=== PATIENT | female | born 1955 | race Caucasian/White ===

== ENCOUNTER → 2016-11-06 | Outpatient (CLI) | payer BC ==
[~2016-11-06] MED LIST: ADVIL200 MG PO; ALEVE LIQCAPS PO; AMBIEN 5MG TABLE5 MG PO; AMITRIPTYLINE H25 M1 PO; BENADRYL25 M1 PO; BENADRYL50 MG PO; CALAN120 MG PO; CALCIUM CARBONA1 TA8 PO; CALCIUM CITRAT200 M2 PO; CELEXA PO; CELEXA40 MG PO; COMPAZINE 110 MG/TAB PO; CULTURELLE IMM1 EACH PO; DUO-KAPS1 CAP PO; FIORINAL 325 MG1 CAP PO; FLAX OIL1000 MG PO; FLONASE NASAL S16 GM NS; FLONASEALLERGY NS; LEXAPRO 10MG10 MG PO; MAG-OX 400400 MG/TAB PO; MELATONIN5 M1 PO; MELATONIN5 M1 SL; MIDRIN 325 MG-11 CAP PO; MULTI VITAMINS1 TAB PO; NATURAL MAGNES200 MG PO; NEURONTIN600 MG/TAB PO; NEW ENERGY1 CAP PO; NORCO 325 MG-51 TAB PO; OMEGA 31000 MG PO; PRINIVIL10 MG PO; PROBIOTIC FORMU1 CAP PO; TOPAMAX50 MG PO; TORADOL 10MG TA10 MG PO; TURMERIC1 POW PO; TUSS PO; TYLENOL 325MG325 MG PO; TYLENOL W/COD1 UDTAB PO; ULTRAM 50MG TAB50 MG PO; VERELAN120 MG PO; VITAMIN C BUFF500 MG PO; XANAX 0.5MG0.5 MG PO; ZANAFLEX2 MG PO; ZESTRIL 10MG10 MG PO
== END ==
LOC: MC.RAD 08:40
DX: Z12.31 Encounter for screening mammogram for malignant neoplasm of breast (principal); Z91.89 Other specified personal risk factors, not elsewhere classified

== ENCOUNTER 2017-03-16 09:03 | Emergency (ER) | payer BC ==
[~2017-03-16] VITALS: Ht 160 cm; Wt 81.8 kg
[~2017-03-16 09:03] MED LIST changes: -AMITRIPTYLINE H25 M1 PO; -BENADRYL50 MG PO; -CALCIUM CITRAT200 M2 PO; -COMPAZINE 110 MG/TAB PO; -CULTURELLE IMM1 EACH PO; -FLAX OIL1000 MG PO; -FLONASEALLERGY NS; -NATURAL MAGNES200 MG PO; -NEURONTIN600 MG/TAB PO; -TORADOL 10MG TA10 MG PO; -TYLENOL 325MG325 MG PO; -TYLENOL W/COD1 UDTAB PO; -VERELAN120 MG PO; -ZANAFLEX2 MG PO; -ZESTRIL 10MG10 MG PO
[2017-03-16 09:06] VITALS: TEMP 97.9
[2017-03-16] MEDS ORDERED: CALCIUM CITRAT200 M2 PO (09:47)
[2017-03-16] MEDS ORDERED: FLAX OIL1000 MG PO (09:47)
[2017-03-16] MEDS ORDERED: NEURONTIN600 MG/TAB PO (09:48)
[2017-03-16] MEDS ORDERED: ZESTRIL 10MG10 MG PO (09:48)
[2017-03-16] MEDS ORDERED: CULTURELLE IMM1 EACH PO (09:49)
[2017-03-16] MEDS ORDERED: VERELAN120 MG PO (09:49)
[2017-03-16] MEDS ORDERED: FLONASEALLERGY NS (09:49)
[2017-03-16] MEDS ORDERED: NATURAL MAGNES200 MG PO (09:50)
[2017-03-16] MEDS ORDERED: AMITRIPTYLINE H25 M1 PO (09:51)
[2017-03-16] MEDS ORDERED: ZANAFLEX2 MG PO (09:52)
[2017-03-16] MEDS ORDERED: XANAX 0.5MG0.5 MG PO (10:04)
[2017-03-16] MEDS ORDERED: TORADOL 10MG TA10 MG PO ×2 (10:05→10:09)
[2017-03-16] MEDS ORDERED: TYLENOL 325MG325 MG PO (10:05)
[2017-03-16] MEDS ORDERED: COMPAZINE 110 MG/TAB PO (10:05)
[2017-03-16] MEDS ORDERED: FIORINAL 325 MG1 CAP PO (10:06)
[2017-03-16] MEDS ORDERED: TYLENOL W/COD1 UDTAB PO (10:06)
[2017-03-16] MEDS ORDERED: BENADRYL50 MG PO (10:10)
[2017-03-16 10:18] LABS: HEMOGLOBIN 14.7 g/dl (12.5-16.0); MEAN CELL VOLUME 92 fl (80.0-100.0); MEAN CORPUSCULAR HEMOGLOBIN 31 pg (27.0-31.0); MEAN CORPUSCULAR HGB CONC 33 g/dl (33.0-37.0); MEAN PLATELET VOLUME 9.9 fl (7.4-10.4); PLATELET COUNT 326 K/mm3 (130-400); WHITE BLOOD COUNT 6.4 K/mm3 (4.8-10.8)
[2017-03-16 10:19] LABS: ADD PATHOLOGY DIFF REVIEW NO
[2017-03-16 10:28] LABS: PH 7 (5-8); SQUAMOUS EPITHELIAL None Seen /hpf; URINE APPEARANCE Clear; URINE BACTERIA None Seen /hpf; URINE BILIRUBIN Negative (NEGATIVE); URINE BLOOD Negative (NEGATIVE); URINE COLOR Straw; URINE GLUCOSE Negative (NEGATIVE); URINE KETONE Trace (NEGATIVE); URINE RBC 0-2 /hpf; URINE UROBILINOGEN Negative (NEGATIVE); URINE WBC 0-2 /hpf
[2017-03-16 10:32] LABS: ADJUSTED CALCIUM 9.8 mg/dL (8.4-10.2); ALANINE AMINOTRANSFERASE 28 U/L (9-52); ALBUMIN 4.3 gm/dL (3.5-5.0); ALKALINE PHOSPHATASE 53 U/L (50-136); ANION GAP 10 mmol/L (7-16); BILIRUBIN,TOTAL 0.7 mg/dL (0.0-1.0); BLOOD UREA NITROGEN 17 mg/dL (7-17); CARBON DIOXIDE 26 mmol/L (22-30); CHLORIDE 104 mmol/L (98-107); CREATININE, serum 0.67 mg/dL (0.52-1.25); GLUCOSE 90 mg/dL (74-106); POTASSIUM 3.9 mmol/L (3.4-5.0); SODIUM 140 mmol/L (137-145); TOTAL PROTEIN 7.6 gm/dL (6.4-8.2)
[2017-03-16 10:33] LABS: C-REACTIVE PROTEIN < 0.5 mg/dL (0.0-0.9)
[2017-03-16 10:35] LABS: INR 0.9 (0.8-3.0); PROTHROMBIN TIME 10.4 SECONDS (9.7-12.8)
[2017-03-16 10:43] LABS: BAND 4 % (0-10); BASOPHIL 1 % (0-2); EOSINOPHIL 1 % (0-4); NEUTROPHILS 63 % (42.0-75.2); PLATELET ESTIMATE NORMAL (NORMAL); TOTAL CELLS COUNTED 100
[2017-03-16 11:01] VITALS: BP 142/77; PULSE 61
== END 2017-03-16 11:01 | disposition home or self-care (01) ==
LOC: COL.ER 09:03
PROVIDERS: Family Medicine
DX: G43.909 Migraine, unspecified, not intractable, without status migrainosus (principal); I10 Essential (primary) hypertension; Z79.82 Long term (current) use of aspirin
CPT/HCPCS: J1885; J2550

== ENCOUNTER 2017-03-23 11:10 | Inpatient (IN) | payer BC ==
[~2017-03-23] VITALS: Ht 160 cm; Wt 79.2 kg
[~2017-03-23 11:10] MED LIST changes: +AMITRIPTYLINE H25 M1 PO; +BENADRYL50 MG PO; +CALCIUM CITRAT200 M2 PO; +COMPAZINE 110 MG/TAB PO; +CULTURELLE IMM1 EACH PO; +FLAX OIL1000 MG PO; +FLONASEALLERGY NS; +NATURAL MAGNES200 MG PO; +NEURONTIN600 MG/TAB PO; +TORADOL 10MG TA10 MG PO; +TYLENOL 325MG325 MG PO; +TYLENOL W/COD1 UDTAB PO; +VERELAN120 MG PO; +ZANAFLEX2 MG PO; +ZESTRIL 10MG10 MG PO
[2017-04-22] MEDS ORDERED: IMITREX50 MG PO (16:43)
[2017-04-26] VITALS (10 sets, daily range): BP systolic 106–148; BP diastolic 60–79; PULSE 59–94; TEMP 98–98.9
[2017-04-27] VITALS (8 sets, daily range): BP systolic 104–140; BP diastolic 49–67; PULSE 64–77; TEMP 98–99.1
[2017-04-27 07:14] LABS: HEMATOCRIT 37.6 % (37.0-47.0); HEMOGLOBIN 12.2 g/dl (12.5-16.0)
[2017-04-28 04:18] VITALS: BP 132/60; PULSE 73; TEMP 98.6
[2017-04-28] MEDS ORDERED: ASPI325T6 PO (06:34)
[2017-04-28] MEDS ORDERED: NORCO 325 MG-7.1 TAB PO (06:35)
[2017-04-28] MEDS ORDERED: ROXICODONE 55 MG/TAB PO (06:36)
[2017-04-28] MEDS ORDERED: COLACE 100100 MG/CAP PO (06:37)
[2017-04-28 06:48] LABS: HEMATOCRIT 35.1 % (37.0-47.0); HEMOGLOBIN 11.5 g/dl (12.5-16.0)
[2017-04-28 07:25] VITALS: BP 101/46; PULSE 73; TEMP 98.4
[2017-04-28 11:23] VITALS: BP 137/68; PULSE 75; TEMP 98.2
[2017-04-28 15:42] VITALS: BP 143/56; PULSE 72; TEMP 98.2
== END 2017-04-28 16:49 | disposition home or self-care (01) | DRG 470 ==
LOC: JCC 04-26 08:29
PROVIDERS: Orthopaedic Surgery
PROC: 0SRD0J9 Replacement of Left Knee Joint with Synthetic Substitute, Cemented, Open Approach (ICD-10-PCS; principal; 2017-04-26 13:30)
DX: M17.12 Unilateral primary osteoarthritis, left knee (principal)
CPT/HCPCS: A4315; A9284; C1713; C1776; J0690; J1100; J1885; J2250; J2405; J2704; J7120

== ENCOUNTER → 2017-12-06 | Outpatient (CLI) | payer BC ==
[~2017-12-06] MED LIST changes: +ASPI325T6 PO; +COLACE 100100 MG/CAP PO; +IMITREX50 MG PO; +NORCO 325 MG-7.1 TAB PO; +ROXICODONE 55 MG/TAB PO
== END ==
LOC: MC.RAD 09:40
DX: Z12.31 Encounter for screening mammogram for malignant neoplasm of breast (principal)

== ENCOUNTER 2019-09-18 08:17 | Day surgery (SDC) | payer MEDICARE, OTHER ==
[~2019-09-18] VITALS: Ht 160 cm; Wt 77.3 kg
[2019-09-18] MEDS ORDERED: D3-5050000 IU PO (08:31)
[2019-09-18] MEDS ORDERED: PRAVACHOL 40MG40 MG PO (08:33)
[2019-09-18] MEDS ORDERED: ZANTAC 150150 MG PO (08:34)
[2019-09-18] MEDS ORDERED: PRIL40 PO (08:34)
[2019-09-18] MEDS ORDERED: EMGALITY120 MG/1 M SQ (08:34)
[2019-09-18] MEDS ORDERED: CELEXA 20MG20 MG/TAB PO (08:35)
[2019-09-18] MEDS ORDERED: TYLENOL W/COD1 UDTAB PO (08:36)
[2019-09-18] MEDS ORDERED: IMITREX50 MG PO (08:36)
[2019-09-18] MEDS ORDERED: TORADOL 10MG TA10 MG PO (08:37)
[2019-09-18] MEDS ORDERED: COMPAZINE 110 MG/TAB PO (08:37)
[2019-09-18 08:43] VITALS: BP 134/63; PULSE 57; TEMP 98
[2019-09-18 10:12] VITALS: BP 111/71; PULSE 58; TEMP 98.5
--- NOTE | 2019-09-18 10:12 | NUR ---
Pt returned from procedure via cart, accompanied by XENIA Dodson. Pt ambulates to chair with SBA X1 without difficulties, A&O x4, denies pain/discomfort, or N/V, VSS and WNL, Lungs CTAB with no shortness of breath noted. Diet pepsi offered per pt request, call light within reach and Son at bedside.
[2019-09-18 10:30] VITALS: BP 115/69; PULSE 60; TEMP 97.8
[2019-09-18 10:45] VITALS: BP 115/79; PULSE 61; TEMP 97.4
--- NOTE | 2019-09-18 10:50 | NUR ---
Pt has drank 100% of diet Pepsi and has ate 100% of blueberry muffin without difficulties. Continues to deny N/V, or pain/discomfort, VSS and WNL, son remains at bedside, no further concerns at this time.
[2019-09-18 11:00] VITALS: BP 114/74; PULSE 66; TEMP 97.4
--- NOTE | 2019-09-18 11:09 | NUR ---
Dr. Roche into see and review findings with pt and Son.
--- NOTE | 2019-09-18 11:32 | NUR ---
Pt discharge instructions and education reviewed with pt and son, verbalized understanding, IV removed per orders without difficulties, pt dressed by self without difficulites and escorted out to son's car via W/C by this nurse.
== END 2019-09-18 11:32 | disposition home or self-care (01) ==
LOC: SDCO 08:17
DX: D12.2 Benign neoplasm of ascending colon (principal); D12.5 Benign neoplasm of sigmoid colon; D12.8 Benign neoplasm of rectum; K64.4 Residual hemorrhoidal skin tags; K52.9 Noninfective gastroenteritis and colitis, unspecified; D13.0 Benign neoplasm of esophagus; K21.9 Gastro-esophageal reflux disease without esophagitis; K44.9 Diaphragmatic hernia without obstruction or gangrene; K29.30 Chronic superficial gastritis without bleeding; I10 Essential (primary) hypertension; F32.9 Major depressive disorder, single episode, unspecified; F41.9 Anxiety disorder, unspecified; G43.909 Migraine, unspecified, not intractable, without status migrainosus; Z86.010 Personal history of colon polyps; Z88.1 Allergy status to other antibiotic agents; Z79.51 Long term (current) use of inhaled steroids; Z83.71 Family history of colonic polyps; Z90.49 Acquired absence of other specified parts of digestive tract; Z90.710 Acquired absence of both cervix and uterus
CPT/HCPCS: J2250; J2405; J3010; J7030

== ENCOUNTER → 2019-09-28 | Outpatient (CLI) | payer MEDICARE, OTHER ==
[~2019-09-28] MED LIST changes: +CELEXA 20MG20 MG/TAB PO; +D3-5050000 IU PO; +EMGALITY120 MG/1 M SQ; +PRAVACHOL 40MG40 MG PO; +PRIL40 PO; +ZANTAC 150150 MG PO
== END ==
LOC: MC.RAD 09:56
DX: Z12.31 Encounter for screening mammogram for malignant neoplasm of breast (principal)

== ENCOUNTER → 2020-10-16 | Outpatient (CLI) | payer MEDICARE, OTHER | LOC: MC.RAD 13:07 | DX: Z12.31 Encounter for screening mammogram for malignant neoplasm of breast (principal) ==

== ENCOUNTER → 2020-12-21 | Outpatient (CLI) | payer MEDICARE, OTHER | LOC: COL.RAD 10:22 | DX: G31.9 Degenerative disease of nervous system, unspecified (principal); I67.89 Other cerebrovascular disease; M47.812 Spondylosis without myelopathy or radiculopathy, cervical region; G43.709 Chronic migraine without aura, not intractable, without status migrainosus | CPT/HCPCS: A9585 ==

== ENCOUNTER → 2021-11-20 | Outpatient (CLI) | payer MEDICARE, OTHER | LOC: MC.RAD 13:04 | DX: Z12.31 Encounter for screening mammogram for malignant neoplasm of breast (principal) ==

== ENCOUNTER → 2023-01-01 | Outpatient (CLI) | payer MEDICARE, OTHER | LOC: MC.RAD 12:49 | DX: Z12.31 Encounter for screening mammogram for malignant neoplasm of breast (principal) ==

== ENCOUNTER 2023-08-26 10:49 | Emergency (ER) | payer MEDICARE, OTHER ==
[~2023-08-26] VITALS: Ht 160 cm; Wt 71.8 kg
[2023-08-26 10:55] VITALS: TEMP 98.2
[2023-08-26 11:41] LABS: BASO # 0.1 K/mm3 (0.0-0.2); BASO % 1.4 % (0.0-2.0); EOS # 0.1 K/mm3 (0.0-0.7); EOS % 2.2 % (0.0-4.0); GRAN # 1.6 K/mm3 (1.4-6.5); GRAN % 43.7 % (42.2-75.2); HEMATOCRIT 39.2 % (37.0-47.0); HEMOGLOBIN 12.6 g/dl (12.5-16.0); LYMPH # 1.4 K/mm3 (1.2-3.4); LYMPH % 38.9 % (20.0-51.0); MEAN CELL VOLUME 96 fl (80.0-100.0); MEAN CORPUSCULAR HEMOGLOBIN 31 pg (27-31); MEAN CORPUSCULAR HGB CONC 32 g/dl (33.0-37.0); MONO # 0.5 K/mm3 (0.1-0.6); MONO % 13.8 % (1.7-9.3); PLATELET COUNT 295 K/mm3 (130-400); RED BLOOD COUNT 4.09 M/mm3 (4.10-5.30)
[2023-08-26 12:09] LABS: ALANINE AMINOTRANSFERASE 14 U/L (0-55); ALBUMIN 3.6 gm/dL (3.4-4.8); ALKALINE PHOSPHATASE 30 U/L (40-150); ANION GAP 7 mmol/L (7-16); AST,SGOT 22 U/L (5-34); BILIRUBIN,TOTAL 0.7 mg/dL (0.2-1.2); BLOOD UREA NITROGEN 9 mg/dL (10-20); CALCIUM 9.7 mg/dL (8.4-10.2); CARBON DIOXIDE 24 mmol/L (23-31); CHLORIDE 108 mmol/L (98-107); CREATININE, serum 0.78 mg/dL (0.57-1.11); GLUCOSE 89 mg/dL (70-99); POTASSIUM 4.1 mmol/L (3.5-4.5); SODIUM 139 mmol/L (136-145); TOTAL PROTEIN 6.6 gm/dL (6.2-8.1)
[2023-08-26 12:15] LABS: TROPONIN-I < 0.010 ng/mL (0.00-0.033)
[2023-08-26] MEDS ORDERED: Pantoprazole 40 MG in NS 10 ML IV ONE (12:45)
[2023-08-26 14:05] VITALS: BP 125/66; PULSE 58
== END 2023-08-26 14:07 | disposition home or self-care (01) ==
LOC: COL.ER 10:49
PROVIDERS: Family Medicine
DX: R07.2 Precordial pain (principal)
CPT/HCPCS: C9113

== ENCOUNTER → 2024-01-04 | Outpatient (CLI) | payer MEDICARE | LOC: MC.RAD 08:28 | DX: Z12.31 Encounter for screening mammogram for malignant neoplasm of breast (principal) ==